=== PATIENT | male | born 1980 | race African-American/Black ===

== ENCOUNTER 2016-07-28 18:22 | Inpatient (IN) | payer OTHER ==
--- NOTE | ~2016-07-28 | HP ---
History And Physical [facility] [address] [place]. [address] NAME: CHRISTIANA PATTERSON : 80 STATUS : ADM IN PAT#: [id number] AGE: 35 ADM/REG DATE : 07/28/16 MR#: [id number] REPORT SERV DATE: 07/29/16 DICTATED BY: DAYANNA SIMMONS DATE: 07/29/16 REPORT STATUS : Draft TRANSCRIBED BY: MODBasil DATE: 07/29/16 DATE OF ADMISSION: 07/28/2016 CHIEF COMPLAINT: Palpitations and lightheadedness. HISTORY OF PRESENT ILLNESS: The patient is a 35-year-old male with hypogonadism, recently diagnosed hypertension, and recent upper respiratory tract infection. The patient simultaneously was placed on chlorthalidone, prednisone dose pack, and albuterol metered- dose inhaler. The patient reported that two days ago, he had an episode of orthostatic lightheadedness, dizziness which was new. He shortly thereafter developed abrupt onset of racing palpitations. Continued to have some intermittent orthostatics symptoms. He was seen in the emergency department and found to be in atrial fibrillation with rapid ventricular rate. He was begun on intravenous diltiazem drip with poor heart rate control. He was transitioned to amiodarone. He remains in atrial fibrillation, however now has controlled ventricular rate. The patient denies chest pain, denies dyspnea on exertion. Very physically active, has regular exercise program performing both aerobic and weightlifting activities without symptoms. Denies illicit drug use. Infrequent alcohol use. No recent alcohol binge. Drinks no significant caffeinated beverages. PAST MEDICAL HISTORY: 1. Hypertension. 2. Hypogonadism on testosterone (AndroGel) supplementation. PAST SURGICAL HISTORY: Cosmetic mandibular manipulation as a part of oral surgery. FAMILY HISTORY: Grandmother with history of atrial fibrillation. Mother with history of hypertension. No coronary disease or cerebrovascular disease in the family. ALLERGIES: PENICILLIN WITH RASH AND SHORTNESS OF BREATH. MEDICATIONS: Chlorthalidone 12.5 mg daily, albuterol metered-dose inhaler two puffs p.r.n., multivitamin with minerals daily, recent prednisone dose pack which was discontinued two days ago, AndroGel 1.62% topical gel two pumps daily to the axilla bilaterally. REVIEW OF SYSTEMS: Review of systems negative for all organ systems except per the history of present illness. PHYSICAL EXAMINATION: VITAL SIGNS: Blood pressure 144/73, pulse 69, respirations 12 and unlabored, saturating 97% on room air, weight 138 kg. GENERAL: Middle-aged male in no acute distress. HEENT: Normal. NECK: Supple, no JVD or bruit, normal carotid upstroke bilaterally, no thyromegaly. LUNGS: Clear to auscultation and percussion. No wheezes, rales or rhonchi. No use of accessory muscles. CARDIOLOGY: Irregularly regular rhythm, normal S1, S2, no thrill, no murmur, rubs or History And Physical [address] [address] NAME: CHRISTIANA PATTERSON : 80 STATUS : ADM IN [facility]#: [id number] AGE: 35 ADM/REG DATE : 07/28/16 MR#: [id number] REPORT SERV DATE: 07/29/16 DICTATED BY: DAYANNA SIMMONS DATE: 07/29/16 REPORT STATUS : Draft TRANSCRIBED BY: AUGUSTINE DATE: 07/29/16 gallops, normal PMI. ABDOMEN: Bowel sounds positive, soft, nontender, and nondistended. No masses or aortic bruits. No hepatosplenomegaly or hepatojugular reflux. EXTREMITIES: No edema. Normal pulses. No clubbing or cyanosis. SKIN: Warm and dry, no significant rash. NEUROLOGIC: Alert and oriented x 3. Appropriate mood. EKG: EKG on presentation, atrial fibrillation with rapid ventricular rate. Most recent EKG, atrial fibrillation with controlled ventricular rate with nonspecific T-wave changes. LABORATORIES: Sodium 135, potassium 3.5, chloride 98, BUN 12, creatinine 1.7, GFR 59, glucose 83, magnesium 2.2, calcium 9. WBC 9.3, hemoglobin 15.6, hematocrit 44.6, platelets 306,000. Troponin 0.06 and 0.06. Beta natriuretic peptide normal at 52. Thyroid stimulating hormone normal. IMPRESSION: Persistent atrial fibrillation of recent onset. Amiodarone drip attempted to convert the same. The patient anticoagulated with Eliquis at this time. Continue amiodarone for 24 hours. Transition to p.o. if not covered by that time. We will arrange for an echocardiogram to evaluate cardiac structure and function. I believe that the patient's atrial fibrillation is likely related to the simultaneous additions of beta agonist diuretic which ultimately led to hypotension and orthostatic symptoms as well as steroid dose pack. No history suggest previous structural heart disease nor ischemic heart disease. Minimal troponin elevation secondary to demand ischemia. We have discussed potential plan for electrical cardioversion in 24 to 48 hours if the patient is not spontaneously converted to sinus rhythm. The risks, benefits, and alternatives of the procedure have been discussed with the patient. Complications including but not limited to respiratory failure, hypotension, and bradycardia related to conscious sedation as well as superficial burn to the chest, , stroke, myocardial infarction, asystole, or likely for any heart rhythm irregularity have been discussed. The patient voices understanding of potential risks and desires to proceed. CSL/MODL Jordan Simmons M.D. / [id number] CC: Marko Carrillo
--- NOTE | ~2016-07-28 | DS ---
Discharge Summary [facility] [address] [place]. [address] NAME: CHRISTIANA PATTERSON : 80 STATUS : DIS IN PAT#: [id number] AGE: 35 ADM/REG DATE : 07/28/16 MR#: [id number] REPORT SERV DATE: 08/09/16 DICTATED BY: DAYANNA SIMMONS DATE: 08/08/16 REPORT STATUS : Draft TRANSCRIBED BY: AUGUSTINE DATE: 08/08/16 Data Collection from hospitalization DISCHARGE DIAGNOSES: 1. Paroxysmal atrial fibrillation. 2. Hypertension. 3. Hypogonadism-on testosterone supplementation. CONSULTATIONS: None. PROCEDURES PERFORMED: None. DISCHARGE MEDICATIONS: Norvasc 5 mg daily, Eliquis 5 mg twice a day, multivitamins with minerals one tablet daily, AndroGel topically every morning as instructed. CONDITION AT DISCHARGE: Stable. DISPOSITION: The patient was discharged home on a regular low-sodium diet with activities as instructed. He would follow up with me one month following discharge. HOSPITAL COURSE: This is a 35-year-old man, who has hypogonadism, who was recently diagnosed with hypertension and upper respiratory tract infection. He was simultaneously placed on chlorthalidone, prednisone Dosepak and albuterol metered-dose inhaler. The patient reports that two days prior to admission, he had an episode of orthostatic lightheadedness and dizziness, which was new. Shortly thereafter he developed the abrupt onset of racing palpitations. He continued to have some intermittent orthostatic symptoms. He was seen in the emergency department and was found to be in atrial fibrillation with rapid ventricular rate. He was started on intravenous diltiazem drip with poor heart rate control. He was transitioned to amiodarone. He remained in atrial fibrillation, however, now had a controlled ventricular rate. He denied chest pain, dyspnea on exertion, and was very physically active and had a regular exercise program performing both aerobic and weight lifting activities without symptoms. He denies any illicit drug use and has infrequent alcohol use. He had no recent alcohol binge. He does not drink significant caffeinated beverages. He was admitted to the hospital at this time for further evaluation and treatment. Upon admission, his EKG had revealed atrial fibrillation with rapid ventricular rate and nonspecific T-wave changes. Amiodarone drip was started to convert atrial fibrillation. He was anticoagulated with Eliquis at this time. Amiodarone was going to be continued for 24 hours. We would transition to oral if not covered by that time. We would arrange for an echocardiogram to evaluate cardiac structure and function. It was felt that the patient's atrial fibrillation was likely related to simultaneous additions of beta agonist diuretic, which ultimately led to hypotension and orthostatic symptoms as well as steroid dose pack. There is no history to suggest previous structural heart disease nor ischemic heart disease. Minimal troponin elevation was felt secondary to demand ischemia. The potential plan for electrical cardioversion was discussed if the patient did not spontaneously convert to a sinus rhythm. The following day, an echocardiogram was performed. He was still on atrial fibrillation with rapid ventricular response. On the , he had no chest pain or dyspnea. Discharge Summary [address] [address] NAME: CHRISTIANA PATTERSON : 80 STATUS : DIS IN PAT#: [id number] AGE: 35 ADM/REG DATE : 07/28/16 MR#: [id number] REPORT SERV DATE: 08/09/16 DICTATED BY: DAYANNA SIMMONS DATE: 08/08/16 REPORT STATUS : Draft TRANSCRIBED BY: AUGUSTINE DATE: 08/08/16 Echocardiogram had revealed ejection fraction 50%. Telemetry revealed atrial fibrillation. It was felt that he would need to undergo cardioversion for the persistent atrial fibrillation. On 07/31/2016, the patient had converted to a normal sinus rhythm. He was asymptomatic. Eliquis and amlodipine were continued. Discharge instructions were given. Due to his improved and stable condition, he was discharged home with the above-stated instructions. Information collected by: Annie Rhodes I submit the above information as my discharge summary. TYRONE/AUGUSTINE Jordan Simmons M.D. / [id number] CC: Marko Carrillo CHRISTOPHER M, DO
[2016-07-28 18:11] LABS: BASOPHILS 0.2 %; BASOPHILS ABSOLUTE 0.02 10/3/uL (0.0-0.16); EOSINOPHILS 1.4 %; EOSINOPHILS ABSOLUTE 0.13 10/3/uL (0.0-0.53); ER CBC TAT 0 Hrs 05 Mins; HEMATOCRIT 44.6 % (40.0-51.0); HEMOGLOBIN 15.6 g/dL (13.6-17.8); IMMATURE GRANULOCYTES 0.3 %; IMMATURE GRANULOCYTES ABSOLUTE 0.03 10/3/uL (0.0-0.11); LYMPHOCYTES 30.9 %; LYMPHOCYTES ABSOLUTE 2.88 10/3/uL (0.67-4.30); MANUAL DIFF NO %; MEAN CORPUSCULAR HEMOGLOB 29.1 pg (26.0-34.0); MEAN CORPUSCULAR VOLUME 83.2 fL (80-100); MEAN PLATELET VOLUME 10.4 fL (9.2-13.0); MONOCYTES 7.6 %; MONOCYTES ABSOLUTE 0.71 10/3/uL (0.21-1.20); NEUTROPHILS 59.6 %; NEUTROPHILS ABSOLUTE 5.55 10/3/uL (2.02-8.40); PLATELET COUNT 306 10/3/uL (150-400); RED CELL COUNT 5.36 10/6/uL (4.7-6.1); WHITE BLOOD CELLS 9.3 10/3/uL (4.5-10.5)
[2016-07-28 18:21] LABS: INTERNATIONAL NORMAL RATI 1.1 UNITS (-); PARTIAL THROMBO TIME 35.6 SEC (22.5-37.2)
[2016-07-28 18:27] LABS: CHLORIDE, SERUM 98 MMOL/L (96-112); CO2 (CARBON DIOXIDE) 31 MMOL/L (24-34); GFR AFRICAN AMERICAN 59 ML/MIN (>=60); GFR NON AFRICAN AMERICAN 51 ML/MIN (>=60); GLUCOSE, SERUM 83 MG/DL (60-99); POTASSIUM, SERUM 3.5 MMOL/L (3.5-5.3); SODIUM, SERUM 135 MMOL/L (135-148)
[2016-07-28 18:31] LABS: BUN (BLOOD UREA NITROGEN) 21 MG/DL (6-23)
[2016-07-28 18:34] LABS: CHEST PAIN PROFILE TAT 0 Hrs 28 Mins; TROPONIN I 0.06 NG/ML (<0.05)
[2016-07-28] MEDS ORDERED: HYGROTON 25 MG25 MG PO (20:07)
[2016-07-28] MEDS ORDERED: ANDROGEL1.25 GM TOP (20:07)
[2016-07-28] MEDS ORDERED: PROAIR HFA INH (20:08)
[2016-07-28] MEDS ORDERED: MULTIVIT/MIN PO (20:08)
[2016-07-28] MEDS ORDERED: STERAPRED DS10 MG (20:08)
[2016-07-29 01:08] LABS: ALBUMIN 3.6 G/DL (3.5-5.0); DIRECT BILIRUBIN 0.1 MG/DL (0.0-0.4); FREE T4 1.09 NG/DL (0.76-1.46); INDIRECT BILIRUBIN(NOT ORDER) 0.3 MG/DL (0.1-0.9); TOTAL BILIRUBIN 0.4 MG/DL (0-1.2); TOTAL PROTEIN 8.4 G/DL (6.0-8.5)
[2016-07-29 01:09] LABS: TROPONIN I 0.06 NG/ML (<0.05); ULTRASENSITIVE TSH 1.91 MCIU/ML (0.358-3.740)
[2016-07-31 06:55] LABS: BASOPHILS 0.4 %; BASOPHILS ABSOLUTE 0.03 10/3/uL (0.0-0.16); EOSINOPHILS 1.9 %; EOSINOPHILS ABSOLUTE 0.16 10/3/uL (0.0-0.53); HEMATOCRIT 41.1 % (40.0-51.0); HEMOGLOBIN 13.6 g/dL (13.6-17.8); IMMATURE GRANULOCYTES 0.2 %; IMMATURE GRANULOCYTES ABSOLUTE 0.02 10/3/uL (0.0-0.11); LYMPHOCYTES 31.1 %; LYMPHOCYTES ABSOLUTE 2.58 10/3/uL (0.67-4.30); MEAN CORPUSCULAR HEMOGLOB 28.3 pg (26.0-34.0); MEAN CORPUSCULAR VOLUME 85.4 fL (80-100); MEAN PLATELET VOLUME 10.7 fL (9.2-13.0); MONOCYTES ABSOLUTE 0.66 10/3/uL (0.21-1.20); NEUTROPHILS 58.4 %; NEUTROPHILS ABSOLUTE 4.84 10/3/uL (2.02-8.40); PLATELET COUNT 287 10/3/uL (150-400); RED CELL COUNT 4.81 10/6/uL (4.7-6.1); WHITE BLOOD CELLS 8.3 10/3/uL (4.5-10.5)
[2016-07-31 06:56] LABS: MANUAL DIFF NO %; MEAN CORPUS HGB CONC 33.1 g/dL (32.0-36.0)
[2016-07-31 07:02] LABS: INTERNATIONAL NORMAL RATI 1.2 UNITS (-); PROTIME (NOT ORD) 14.7 SEC (12.0-14.5)
[2016-07-31 07:05] LABS: BUN (BLOOD UREA NITROGEN) 21 MG/DL (6-23); CALCIUM, SERUM 8.5 MG/DL (8.5-10.4); CHLORIDE, SERUM 101 MMOL/L (96-112); CO2 (CARBON DIOXIDE) 31 MMOL/L (24-34); CREATININE 1.58 MG/DL (0.70-1.30); GFR AFRICAN AMERICAN 65 ML/MIN (>=60); GFR NON AFRICAN AMERICAN 56 ML/MIN (>=60); GLUCOSE, SERUM 87 MG/DL (60-99); SODIUM, SERUM 137 MMOL/L (135-148)
[2016-07-31 07:06] LABS: POTASSIUM, SERUM 3.7 MMOL/L (3.5-5.3)
[2016-07-31] MEDS ORDERED: ELIQUIS 5 MG TAB5 MG PO (08:33)
[2016-07-31] MEDS ORDERED: NORV5 PO (08:47)
== END 2016-07-31 11:36 | disposition home or self-care (01) | DRG 310 ==
LOC: ER 18:22 → 2SO 19:43
PROVIDERS: Emergency Medicine; Internal Medicine Cardiovascular Disease
DX: I48.1 Persistent atrial fibrillation (principal); I10 Essential (primary) hypertension; E29.1 Testicular hypofunction
CPT/HCPCS: 71010; 80048; 80076; 83735; 83880; 84439; 84443; 84484; 85025; 85610; 85730; 93005; 96365; 96366; 96368; 99284; A9270-GY; C8929; J0282; Q9957